=== PATIENT | female | born 1975 | race Caucasian/White ===

== ENCOUNTER 2017-08-01 10:58 | Emergency (ER) | payer OTHER ==
[~2017-08-01] VITALS: Ht 170.2 cm; Wt 101.0 kg
[~2017-08-01 10:58] MED LIST: CYMB60CA PO; GLYB1.2538 PO; LEVEMIR SQ; LEVO75TA3 PO; ZOFR4TAB3 SL
[2017-08-01 11:02] VITALS: BP 168/95; PULSE 109; RESP 16; TEMP 98.3; O2SAT 98
[2017-08-01 11:24] LABS: BLOOD, URINE NEG (NEG); GLUCOSE,URINE 1000 OR GREATER mg/dL (NEG); KETONE, URINE NEG (NEG); NITRITE,URINE NEG (NEG)
[2017-08-01 11:30] LABS: COMMENT (UR) CULT NOT INDICATED; CULTURE IF INDICATED CULT NOT INDICATED; METHOD OF COLLECTION CLEAN CATCH; RBC, URINE 0-3 /hpf (0-3); URINE COLOR YELLOW (YELLW/STRAW); WBC, URINE 0-2 /hpf (0-5)
[2017-08-01] MEDS ORDERED: GLIM4TAB PO (11:45)
[2017-08-01 12:17] LABS: AUTOMATED NEUTROPHIL # 6.4 TH/MM3 (1.8-7.7); BASOPHIL # 0.1 TH/MM3 (0-0.2); BASOPHIL % 0.7 % (0.0-2.0); EOSINOPHIL # 0.2 TH/MM3 (0-0.4); EOSINOPHIL % 2.6 % (0.0-4.0); HEMATOCRIT 42.4 % (35.0-46.0); HEMO FLAGS DIFF FINAL; LYMPH % 21.8 % (9.0-44.0); MEAN CELL VOLUME 83.8 FL (80.0-100.0); MEAN CORPUSCULAR HEMOGLOBIN 28.1 PG (27.0-34.0); MEAN CORPUSCULAR HGB CONC 33.5 % (32.0-36.0); MONO % 4.6 % (0.0-8.0); NEUT % 70.3 % (16.0-70.0); PLATELET COUNT 224 TH/MM3 (150-450); RED BLOOD COUNT 5.06 MIL/MM3 (4.00-5.30); RED CELL DISTRIBUTION WIDTH 12.4 % (11.6-17.2); WHITE BLOOD COUNT 9.1 TH/MM3 (4.0-11.0)
[2017-08-01 12:27] LABS: CHLORIDE 99 MEQ/L (98-107); POTASSIUM 3.9 MEQ/L (3.5-5.1); SODIUM (NA) 133 MEQ/L (136-145)
[2017-08-01] MEDS ORDERED: KETOROLAC TROMETHAMINE 30 MG/ML (IVP) VIAL IV PUSH ONE (12:30)
[2017-08-01 12:31] LABS: ANION GAP 8 MEQ/L (5-15); BICARBONATE 25.7 MEQ/L (21.0-32.0); BLOOD UREA NITROGEN 11 MG/DL (7-18)
[2017-08-01 12:34] LABS: ALT (GPT) 21 U/L (10-53); AST (GOT) 15 U/L (15-37); GLOMERULAR FILTRATION RATE 67 ML/MIN (>89)
[2017-08-01 12:36] LABS: TOTAL BILIRUBIN ADULT 0.5 MG/DL (0.2-1.0)
[2017-08-01 12:37] LABS: ALKALINE PHOSPHATASE 69 U/L (45-117)
[2017-08-01] MEDS ORDERED: IOHEXOL 350 MG/ML 10 ML VIAL (for RAD DIAG) IVCONTRAST ONE (13:05)
[2017-08-01 13:43] VITALS: BP 148/85; PULSE 97; RESP 18; O2SAT 98
--- NOTE | 2017-08-01 13:59 | RADRPT ---
EXAM DATE/TIME: 08/01/2017 12:58 [place] COMPARISON: CT ABDOMEN & PELVIS W CONTRAST, February 22, 2016, 19:28. INDICATIONS : Lower abdominal pain. IV CONTRAST: 85 cc Omnipaque 350 (iohexol) IV ORAL CONTRAST: No oral contrast ingested. RADIATION DOSE: 21.72 CTDIvol (mGy) MEDICAL HISTORY : Diabetes mellitus type 2. SURGICAL HISTORY : Appendectomy. Hysterectomy.Bladder sling. ENCOUNTER: Initial ACUITY: 3 days PAIN SCALE: 7/10 LOCATION: lower quadrant TECHNIQUE: Volumetric scanning of the abdomen and pelvis was performed. Using automated exposure control and ad justment of the mA and/or kV according to patient size, radiation dose was kept as low as reasonably achievable to obtain optimal diagnostic quality images. DICOM format image data is available electro nically for review and comparison. FINDINGS: LOWER LUNGS: The visualized lower lungs are clear. LIVER: Homogeneous density without lesion. There is no dilation of the biliary tree. No calcified gallston es. SPLEEN: Normal size without lesion. PANCREAS: Within normal limits. KIDNEYS: Normal in size and shape. There is no mass, stone or hydronephrosis. ADRENAL GLANDS: Within normal limits. VASCULAR: There is no aortic aneurysm. BOWEL/MESENTERY: The stomach, small bowel, and colon demonstrate no acute abnormality. There is no free intraperitone al air or fluid. ABDOMINAL WALL: Within normal limits. RETROPERITONEUM: There is no lymphadenopathy. BLADDER: No wall thickening or mass. REPRODUCTIVE: Within normal limits. INGUINAL: There is no lymphadenopathy or hernia. MUSCULOSKELETAL: Within normal limits for patient age. CONCLUSION: Negative CT abdomen/pelvis with contrast. Hector Hi MD on August 01, 2017 at 13:56 Board Certified Radiologist. This report was verified electronically.
[2017-08-01] MEDS ORDERED: TRAM50TA PO (14:19)
--- NOTE | 2017-08-01 14:20 | PD ---
HPI Chief Complaint: Abdominal Pain Time Seen by Provider: 11:44 Travel History International Travel<30 days: No Contact w/Intl Traveler<30days: No Traveled to known affect area: No History of Present Illness HPI This is a 41-year-old female who has a history of multiple laparoscopic gynecologic surgeries including a bladder mesh and a hysterectomy who presents to the emergency department with lower abdominal discomfort. She says she's been having pain in the lower abdomen, constant, moderate severity with no associated fevers or chills. She says that the pain is gone a lot worse over the past 3 days and she feels like she is having some difficulty voiding. She denies any nausea or vomiting. She's been under a lot of stress lately and her [id number] is dying of cancer and she is struggling trying a past nursing school. 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 PFSH Past Medical History Depression: Yes Diabetes: Yes Patient Takes Glucophage: No Diminished Hearing: No Immunizations Current: Yes Thyroid Disease: Yes ?: Not Past Surgical History Abdominal Surgery: Yes (LAPX3) Appendectomy: Yes Gynecologic Surgery: Yes (right salpingo-oophorectomy, BLADDER SLING) Hysterectomy: Yes Tonsillectomy: Yes Social History Alcohol Use: No Tobacco Use: No Substance Use: No Allergies-Medications (Allergen,Severity, Reaction): Coded Allergies: metformin (Unverified Allergy, Unknown, SLOUGHING OF INTESTINE, 08/01/17) penicillin G (Unverified Allergy, Unknown, RASH, 08/01/17) aspirin (Unverified Adverse Reaction, Unknown, BLEEDING UNDER THE SKIN, 08/01/17) Reported Meds & Prescriptions Reported Meds & Active Scripts Active Reported Glimepiride 4 Mg Tab 4 Mg PO BIDAC Review of Systems Except as stated in HPI: all other systems reviewed are Neg Physical Exam Narrative GENERAL:Well appearing, no acute distress SKIN: Focused skin assessment warm and dry. HEAD: Atraumatic. Normocephalic. EYES: Pupils equal and round. No injection or drainage. ENT: Moist mucous membranes NECK: Trachea midline. CARDIOVASCULAR: Regular rate and rhythm. No murmur appreciated. RESPIRATORY: Clear to auscultation. Breath sounds equal bilaterally. GASTROINTESTINAL: Abdomen soft, mildly tender to palpation with no rebound or guarding. MUSCULOSKELETAL: No obvious deformities. NEUROLOGICAL: Awake and alert. No obvious cranial nerve deficits. Moving all extremities. PSYCHIATRIC: Appropriate mood and affect; insight and judgment normal. Data Data Last Documented VS Vital Signs Date Time Temp Pulse Resp B/P (MAP) Pulse Ox O2 Delivery O2 Flow Rate FiO2 08/01/17 13:43 97 18 148/85 (106) 98 Room Air 08/01/17 11:02 98.3 Orders Orders Urinalysis - C+S If Indicated (08/01/17 11:17) Complete Blood Count With Diff (08/01/17 11:56) Comprehensive Metabolic Panel (08/01/17 11:56) ^ Insert Iv (08/01/17 11:56) Ed Poc Ultrasound (08/01/17 ) Ct Abd/Pel W Iv Contrast(Rout) (08/01/17 ) Ketorolac Inj (Toradol Inj) (08/01/17 12:30) Iohexol 350 Inj (Omnipaque 350 Inj) (08/01/17 13:05) Labs Laboratory Tests Test 08/01/17 11:20 08/01/17 12:05 Urine Collection Type CLEAN CATCH Urine Color YELLOW Urine Turbidity CLEAR Urine pH 6.0 Urine Specific [place] 1.018 Urine Protein NEG mg/dL Urine Glucose (UA) 1000 OR GREATER mg/dL Urine Ketones NEG mg/dL Urine Occult Blood NEG Urine Nitrite NEG Urine Bilirubin NEG Urine Leukocyte Esterase NEG Urine RBC 0-3 /hpf Urine WBC 0-2 /hpf Urine Squamous Epithelial Cells 6-8 /hpf Microscopic Urinalysis Comment CULT NOT INDICATED Urine Collection Time 11:20 White Blood Count 9.1 TH/MM3 Red Blood Count 5.06 MIL/MM3 Hemoglobin 14.2 GM/DL Hematocrit 42.4 % Mean Corpuscular Volume 83.8 FL Mean Corpuscular Hemoglobin 28.1 PG Mean Corpuscular Hemoglobin Concent 33.5 % Red Cell Distribution Width 12.4 % Platelet Count 224 TH/MM3 Mean Platelet Volume 8.8 FL Neutrophils (%) (Auto) 70.3 % Lymphocytes (%) (Auto) 21.8 % Monocytes (%) (Auto) 4.6 % Eosinophils (%) (Auto) 2.6 % Basophils (%) (Auto) 0.7 % Neutrophils # (Auto) 6.4 TH/MM3 Lymphocytes # (Auto) 2.0 TH/MM3 Monocytes # (Auto) 0.4 TH/MM3 Eosinophils # (Auto) 0.2 TH/MM3 Basophils # (Auto) 0.1 TH/MM3 CBC Comment DIFF FINAL Differential Comment Blood Urea Nitrogen 11 MG/DL Creatinine 0.92 MG/DL Random Glucose 296 MG/DL Total Protein 7.5 GM/DL Albumin 3.1 GM/DL Calcium Level 8.7 MG/DL Alkaline Phosphatase 69 U/L Aspartate Amino Transf (AST/SGOT) 15 U/L Alanine Aminotransferase (ALT/SGPT) 21 U/L Total Bilirubin 0.5 MG/DL Sodium Level 133 MEQ/L Potassium Level 3.9 MEQ/L Chloride Level 99 MEQ/L Carbon Dioxide Level 25.7 MEQ/L Anion Gap 8 MEQ/L Estimat Glomerular Filtration Rate 67 ML/MIN [facility] Medical Decision Making Medical Screen Exam Complete: Yes Emergency Medical Condition: Yes Interpretation(s) afebrile, mild tachycardia, hypertensive no leukocytosis electrolytes within normal limits mild hyperglycemia urinalysis: glucosuria, no infection Differential Diagnosis colitis, adhesions, urinary retention, urinary tract infection Narrative Course This is a 41-year-old female who presents to the emergency department with lower abdominal discomfort. She's had multiple abdominal surgeries. Labs are obtained which are reassuring. Urinalysis is negative for infection. Bedside ultrasound demonstrates no acute urinary retention. CT abdomen and pelvis is unremarkable. I suspect the patient's pain is due to surgical adhesions. She' ll be discharged on pain control and follow-up with her diamond sawer. Diagnosis Primary Impression: Abdominal pain Qualified Codes: R10.30 - Lower abdominal pain, unspecified Patient Instructions: General Instructions Additional Instructions: If you develop severe or worsening abdominal pain, fever>100.4, persistent vomiting or inability to eat or drink return to the emergency department immediately. Follow up with your primary care physician in 1-2 days for a check-up. Med/Other Pt SpecificInfo: Prescription(s) given Scripts Tramadol (Tramadol) 50 Mg Tab 50 MG PO Q6H Y for PAIN, #14 TAB 0 Refills Prov: Chante Waters MD 08/01/17 Disposition: 01 DISCHARGE HOME Condition: Stable Chante Waters MD Aug 01, 2017 14:20
== END 2017-08-01 14:42 | disposition home or self-care (01) ==
LOC: PHED 10:58
DX: R10.30 Lower abdominal pain, unspecified (principal)
CPT/HCPCS: 74177; 80053; 81001; 85025; 96374; 99285; J1885; Q9967